=== PATIENT | female | born 1945 | race Caucasian/White ===

== ENCOUNTER 2017-10-25 12:23 | Inpatient (IN) | payer OTHER ==
[~2017-10-25] VITALS: Ht 149.9 cm; Wt 66.7 kg
[~2017-10-25 12:23] MED LIST: LISINOPRIL2.5 MG PO; NABUMETONE500 MG PO; PERCOCET 5/3251 TAB PO
[2017-11-30] MEDS ORDERED: LOSARTAN-HCTZ1 EAC2 PO (09:30)
[2017-11-30] MEDS ORDERED: CATAPRES0.2 MG PO (09:30)
[2017-11-30] MEDS ORDERED: LEVO-T25 MCG PO (09:31)
[2017-11-30] MEDS ORDERED: FENOFIBRATE160 MG PO (09:31)
[2017-11-30] MEDS ORDERED: VERAPAMIL ER240 MG PO (09:31)
== END 2017-12-07 20:00 | DRG 470 ==
LOC: O/R 12-05 05:18 → SURG 12-05 05:18 → SURH 12-05 09:30 → SURG 12-05 10:49 → SURH 12-05 11:30 → SURG 12-07 16:51
PROVIDERS: Orthopaedic Surgery
PROC: 0SRD0JZ Replacement of Left Knee Joint with Synthetic Substitute, Open Approach (ICD-10-PCS; principal; 2017-12-05 11:30)
DX: M17.12 Unilateral primary osteoarthritis, left knee (principal); D62 Acute posthemorrhagic anemia; M85.662 Other cyst of bone, left lower leg; I10 Essential (primary) hypertension; E03.8 Other specified hypothyroidism; K21.9 Gastro-esophageal reflux disease without esophagitis